=== PATIENT | male | born 1990 | race Hispanic/Latino ===

== ENCOUNTER 2017-07-21 14:22 | Emergency (ER) | payer OTHER ==
[~2017-07-21] VITALS: Ht 175.3 cm; Wt 90.7 kg
[2017-07-21] MEDS ORDERED: BACITRACIN ZINC 0.9GM TP ONE (15:07)
[2017-07-21 15:33] VITALS: BP 134/90
== END 2017-07-21 15:20 | disposition home or self-care (01) ==
LOC: ER 14:22
DX: S60.444A External constriction of right ring finger, initial encounter (principal)
CPT/HCPCS: 99283